=== PATIENT | male | born 1980 | race Caucasian/White ===

== ENCOUNTER 2018-05-15 22:00 | Emergency (ER) | payer BC ==
[~2018-05-15] VITALS: Ht 167.6 cm; Wt 86.4 kg
[2018-05-15 22:09] VITALS: Ht 167.6 cm; Wt 86.4 kg
[2018-05-15] MEDS ORDERED: SYMBICORT 16010.2 GM INH (22:10)
[2018-05-15] MEDS ORDERED: ALBUTEROL SULF8.5 GM INH (22:11)
[2018-05-15 22:27] LABS: APPEARANCE HAZY (CLEAR); BILIRUBIN NEGATIVE (NEGATIVE); COLOR YELLOW (YELLOW); GLUCOSE NEGATIVE (NEGATIVE); KETONE NEGATIVE (NEGATIVE); NITRITE NEGATIVE (NEGATIVE); PROTEIN NEGATIVE (NEGATIVE); UROBILINOGEN NORMAL (NORMAL)
[2018-05-15 22:30] LABS: EPITHELIAL CELLS RARE /hpf (0-5); RED CELLS - URINE 25-50 /hpf (0-5); WHITE CELLS - URINE NSEEN /hpf (0-5)
[2018-05-15 22:31] LABS: BACTERIA NONE SEEN /hpf (NONE SEEN)
[2018-05-15 22:34] LABS: BASOPHILS 0.4 % (0-2); EOSINOPHILS 3.8 % (0-7); HEMATOCRIT 40.9 % (42.0-54.0); HEMOGLOBIN 14.5 g/dL (13.5-17.5); IMMATURE GRANULOCYTES 0.3 % (0-5); LYMPHOCYTES 39.8 % (15-50); MCHC 35.5 g/dL (31.0-37.0); MCV 87.6 fL (80.0-100.0); MEAN PLATELET VOLUME 9.3 fL (7.4-10.4); MONOCYTES 8.1 % (2-11); NEUTROPHILS 47.6 % (40-80); PLATELET COUNT 304 10x3/uL (130-400); RBC 4.67 10x6/uL (4.20-6.10); RDW 12.6 % (11.5-14.5); WBC 7.2 10x3/uL (4.8-10.8)
[2018-05-15 22:43] LABS: ALBUMIN 3.9 g/dL (3.4-5.0); ALKALINE PHOSPHATASE 76 U/L (46-116); ALT (SGPT) 56 U/L (10-68); BILIRUBIN - TOTAL 0.26 mg/dL (0.2-1.3); CALC OSMOLALITY 283 mosm/kg (275-300); CALCIUM 9.1 mg/dL (8.5-10.1); CARBON DIOXIDE 28.2 mmol/L (21.0-32.0); CHLORIDE - SERUM 103 mmol/L (98-107); GLUCOSE 132 mg/dL (74-106); POTASSIUM - SERUM 3.7 mmol/L (3.5-5.1); PROTEIN - SERUM 7.4 g/dL (6.4-8.2); SODIUM 140 mmol/L (136-145); UREA NITROGEN 20 mg/dL (7-18); eGFR NON AFRICAN AMERICAN 89 mL/min (90-120)
[2018-05-15] MEDS ORDERED: ZOFRAN4 MG PO (23:21)
[2018-05-15] MEDS ORDERED: ULTRAM50 MG PO (23:21)
[2018-05-15 23:42] VITALS: BP 112/76
== END 2018-05-15 23:42 | disposition home or self-care (01) ==
LOC: D.ER 22:00
PROVIDERS: Family Medicine
DX: N23 Unspecified renal colic (principal); N20.0 Calculus of kidney